=== PATIENT | male | born 1970 | race Caucasian/White ===

== ENCOUNTER → 2018-02-23 | Outpatient (CLI) | payer OTHER | LOC: CFH 07:18 | PROVIDERS: ATTEND Physician Assistant Surgical | DX: S76.112A Strain of left quadriceps muscle, fascia and tendon, initial encounter (principal); S83.092A Other subluxation of left patella, initial encounter; M25.462 Effusion, left knee; R60.0 Localized edema; X58.XXXA Exposure to other specified factors, initial encounter; Y93.89 Activity, other specified; Y92.89 Other specified places as the place of occurrence of the external cause; Y99.8 Other external cause status ==